=== PATIENT | female | born 1980 | race African-American/Black ===

== ENCOUNTER 2024-09-21 15:36 | Emergency (ER) | payer MEDICARE, SELFPAY ==
[2024-09-21] VITALS (7 sets, daily range): BP systolic 93–158; BP diastolic 69–95; PULSE 70–97; RESP 14–18; TEMP 36.6; O2SAT 95–100
--- NOTE | ~2024-09-21 | CT_ITS ---
CT brain wo con Ordering provider: Jay Pace PA-C History: 44 years Female with . dizziness . Comparison: January 16, 2014 Technique: CT of the head without contrast. Radiation reduction technique utilized.The dose-length product was 605.33 mGy-cm. FINDINGS: BRAIN PARENCHYMA AND CSF SPACES: No midline shift, mass effect or hemorrhage. The brain parenchyma a nd CSF spaces are otherwise normal. VISUALIZED PARANASAL SINUSES: Well aerated. MASTOIDS: Well aerated. BONES: The bones appear intact. SOFT TISSUES: Visualized nasopharynx is normal. Superficial soft tissues are normal. IMPRESSION: No acute intracranial findings. Reviewed, dictated and finalized at location A.
--- NOTE | ~2024-09-21 | XR_ITS ---
CHEST RADIOGRAPH, PA AND LATERAL CLINICAL HISTORY: dizziness . COMPARISON: 02/01/2016 TECHNIQUE: PA and lateral views of the chest. FINDINGS The cardiomediastinal silhouette is unremarkable. The lungs are clear. Visualized osseous structures and soft tissues are unremarkable. IMPRESSION: No focal infiltrate or effusion. Reviewed, dictated and finalized at location A.
--- NOTE | 2024-09-21 16:39 | ECG_ITS ---
Test Date: 2024-09-21 16:45:14 Measurements Intervals [place] Rate: 89 P: 43 LA: 152 QRS: -14 QRSD: 122 T: 9 QT: 356 QTc: 435 Interpretive Statements NORMAL SINUS RHYTHM NONSPECIFIC ST AND T-WAVE ABNORMALITY ABNORMAL ECG Electronically Signed On 09-22-2024 12:14:[address] M.D.
--- NOTE | 2024-09-21 16:39 | ED_ITS ---
HPI - Dizziness General Chief Complaint: Dizziness <Jay Pace PA-C - Last Filed: 09/21/24 16:43> Stated Complaint: Syncopal episode at 1100, dizziness <Jay Pace PA-C - Last Filed: 09/21/24 16:43> Time Seen by Provider: 09/21/24 17:19 <Jay Pace PA-C - Last Filed: 09/21/24 16:43> Focused HPI: This is a 44-year-old female with PMH of lupus, asthma who presents to the ED for chief complaint of dizziness with syncopal episode today occurring around 11:00 a.m.. Patient states that she was with her daughter when she was standing and talking to her. States that she started to feel dizziness come on and then had the episode. States that she went all the way to the ground. She was told by her daughter that she came to after a few seconds. Patient does note that she has had dizziness symptoms in the past were everything feels like it is spinning. States that the dizziness is worse whenever she stands up. Denies fevers, chills, headache, numbness, weakness. GENERAL: Well-appearing, well-nourished, and in no acute distress. HEAD: Normocephalic, atraumatic. CHEST: Clear to auscultation. No respiratory distress. HEART: Regular rate and rhythm. NEURO: Alert and oriented x3. Patient screened in triage and initial orders placed. Additional care and disposition to be based upon diagnostic testing and treatment. <Jay Pace PA-C - Last Filed: 09/21/24 16:43> Source: patient <Jay Pace PA-C - Last Filed: 09/21/24 16:43> Mode of arrival: ambulatory <LILIANA Caro Last Filed: 09/21/24 16:43> Limitations: no limitations <LILIANA Caro Last Filed: 09/21/24 16:43> Related Data Allergies/Adverse Reactions: Allergies Allergy/AdvReac Type Severity Reaction Status Date / Time hydromorphone Allergy Severe NAUSEA AND Verified 09/21/24 18:11 SOB azithromycin Allergy Unknown Hives Verified 09/21/24 18:11 <Jay Pace PA-C - Last Filed: 09/21/24 16:43> Review of Systems 2 Review of Systems: All systems reviewed & are unremarkable except as noted in HPI and below <Kandice Seay PA-C - Last Filed: 09/21/24 20:04> PMFSH Past Medical History Medical History: Medical History (Updated 09/21/24 @ 19:56 by Kandice Seay PA-C) History of hypertension <Jay Pace PA-C - Last Filed: 09/21/24 16:43> Exam 2 Narrative: GENERAL: Well-appearing, well-nourished, and in no acute distress. HEAD: Normocephalic, atraumatic. EYES: EOMI. ENT: Nares clear, no rhinorrhea or epistaxis. Mucous membranes moist. Oropharynx without tonsillar hypertrophy exudate or other lesions. NECK: Supple. No adenopathy or masses. CHEST: Clear to auscultation. No respiratory distress. No wheezes rales or rhonchi HEART: Regular rate and rhythm. No murmur heard. Normal peripheral pulses. EXTREMITIES: Normal range of motion. No edema. SKIN: Warm, dry, no rash. NEURO: No focal deficits. Alert and oriented x3. PSYCH: Normal mood and affect <Kandice Seay PA-C - Last Filed: 09/21/24 20:04> Course Course Emergency Course: patient updated on her workup. Reports feeling much better <Kandice Seay PA-C - Last Filed: 09/21/24 20:04> Vital Signs Vital signs: Vital Signs Temperature 97.8 F 09/21/24 15:40 Pulse Rate 97 09/21/24 15:40 Respiratory Rate 16 09/21/24 15:40 Blood Pressure 109/78 09/21/24 15:40 Pulse Oximetry 95 09/21/24 15:40 Temperature 97.8 F 09/21/24 15:40 Pulse Rate 70 09/21/24 19:28 Respiratory Rate 14 09/21/24 19:28 Blood Pressure 158/95 H 09/21/24 19:28 Pulse Oximetry 100 09/21/24 19:28 <Jay Pace PA-C - Last Filed: 09/21/24 16:43> Vital Signs Temperature 97.8 F 09/21/24 15:40 Pulse Rate 97 09/21/24 15:40 Respiratory Rate 16 09/21/24 15:40 Blood Pressure 109/78 09/21/24 15:40 Pulse Oximetry 95 09/21/24 15:40 Temperature 97.8 F 09/21/24 15:40 Pulse Rate 70 09/21/24 19:28 Respiratory Rate 14 09/21/24 19:28 Blood Pressure 158/95 H 09/21/24 19:28 Pulse Oximetry 100 09/21/24 19:28 <Kandice Seay PA-C - Last Filed: 09/21/24 20:04> MDM - Dizziness MDM Narrative Medical decision making narrative: Patient presents to the ER after a syncopal episode today. Patient orthostatic upon arrival. Hydrated with a L of IV fluids with relief. Cbc without concerning findings. Metabolic panel with mild elevation in creatinine 1.12. EKG without concerning changes and baseline troponin is negative. Chest x-ray without acute cardiopulmonary abnormality. CT brain without acute findings. Patient updated on her workup. Reports feeling much better after hydration. Will be given order for ambulatory Holter monitor. She is to follow up with primary provider. She was given warnings to return to the ER <Kandice Seay PA-C - Last Filed: 09/21/24 20:04> Differential Diagnosis Differential diagnosis: Likely benign paroxysmal positional vertigo, orthostatic hypotension and other (dehydration, electrolyte derangement) <Kandice Seay PA-C - Last Filed: 09/21/24 20:04> Lab Data Attestation: I reviewed the patient's lab results. <Kandice Seay PA-C - Last Filed: 09/21/24 20:04> Result diagrams: 09/21/24 16:45 09/21/24 16:45 <LILIANA Caro Last Filed: 09/21/24 16:43> Labs: Lab Results 09/21/24 Range/Units 16:45 WBC 7.1 (4.5-10.0) K/mm3 RBC 4.19 L (4.2-5.4) M/mm3 Hgb 12.3 (12.0-15.0) g/dL Hct 38.4 (37.0-47.0) % MCV 91.6 (80-100) fl MCH 29.4 (26-34) pg MCHC 32.0 (32-36) g/dl RDW 12.5 (11.5-14.5) % Plt Count 276 (150-375) k/mm3 MPV 8.8 (7.4-10.4) fl Immature Gran % (Auto) 0.1 (0-0.5) % Neut % (Auto) 47.4 (45.5-73.1) % Lymph % (Auto) 35.3 (18.3-44.2) % [place] % (Auto) 11.9 H (2.6-8.5) % Eos % (Auto) 4.7 H (0-4.4) % Baso % (Auto) 0.6 (0.2-1.2) % Lymph # (Auto) 2.49 (0.9-3.2) K/mm3 [place] # (Auto) 0.8 H (0.1-0.6) K/mm3 Eos # (Auto) 0.3 (0-0.3) K/mm3 Baso # (Auto) 0.0 (0.0-0.1) K/mm3 Abs Immat Gran (auto) 0.01 (0.00-0.031) K/mm3 Absolute Neuts (auto) 3.3 (1.3-6.7) K/mm3 Absolute Nucleated RBC 0.000 (0.0-0.012) K/mm3 Nucleated RBC % 0.0 (0.0-0.2) % PT 13.3 (11.1-14.7) Seconds INR 1.0 APTT 25.3 (22.3-36.8) Seconds Sodium 139 (137-145) mmol/L Potassium 4.5 (3.4-5.0) mmol/L Chloride 104 (98-107) mmol/L Carbon Dioxide 26 (22-30) mmol/L Anion Gap 9 (4-12) mmol/L BUN 17 (7-17) mg/dL Creatinine 1.12 H (0.7-1.0) mg/dL Estim Creat Clear Calc Not Reportable Estimated GFR 53 L (59 - ) Glucose 96 (65-110) mg/dL Calcium 9.2 (8.4-10.2) mg/dL Total Bilirubin 0.1 L (0.2-1.3) mg/dL AST 32 (14-36) U/L ALT 24 (6-35) U/L Alkaline Phosphatase 145 H (38-126) U/L Troponin I < 0.012 (0.000-0.034) ng/mL Total Protein 8.0 (6.3-8.2) g/dL Albumin 4.0 (3.5-5.1) g/dL <Jay Pace PA-C - Last Filed: 09/21/24 16:43> Lab Results 09/21/24 Range/Units 16:45 WBC 7.1 (4.5-10.0) K/mm3 RBC 4.19 L (4.2-5.4) M/mm3 Hgb 12.3 (12.0-15.0) g/dL Hct 38.4 (37.0-47.0) % MCV 91.6 (80-100) fl MCH 29.4 (26-34) pg MCHC 32.0 (32-36) g/dl RDW 12.5 (11.5-14.5) % Plt Count 276 (150-375) k/mm3 MPV 8.8 (7.4-10.4) fl Immature Gran % (Auto) 0.1 (0-0.5) % Neut % (Auto) 47.4 (45.5-73.1) % Lymph % (Auto) 35.3 (18.3-44.2) % [place] % (Auto) 11.9 H (2.6-8.5) % Eos % (Auto) 4.7 H (0-4.4) % Baso % (Auto) 0.6 (0.2-1.2) % Lymph # (Auto) 2.49 (0.9-3.2) K/mm3 [place] # (Auto) 0.8 H (0.1-0.6) K/mm3 Eos # (Auto) 0.3 (0-0.3) K/mm3 Baso # (Auto) 0.0 (0.0-0.1) K/mm3 Abs Immat Gran (auto) 0.01 (0.00-0.031) K/mm3 Absolute Neuts (auto) 3.3 (1.3-6.7) K/mm3 Absolute Nucleated RBC 0.000 (0.0-0.012) K/mm3 Nucleated RBC % 0.0 (0.0-0.2) % PT 13.3 (11.1-14.7) Seconds INR 1.0 APTT 25.3 (22.3-36.8) Seconds Sodium 139 (137-145) mmol/L Potassium 4.5 (3.4-5.0) mmol/L Chloride 104 (98-107) mmol/L Carbon Dioxide 26 (22-30) mmol/L Anion Gap 9 (4-12) mmol/L BUN 17 (7-17) mg/dL Creatinine 1.12 H (0.7-1.0) mg/dL Estim Creat Clear Calc Not Reportable Estimated GFR 53 L (59 - ) Glucose 96 (65-110) mg/dL Calcium 9.2 (8.4-10.2) mg/dL Total Bilirubin 0.1 L (0.2-1.3) mg/dL AST 32 (14-36) U/L ALT 24 (6-35) U/L Alkaline Phosphatase 145 H (38-126) U/L Troponin I < 0.012 (0.000-0.034) ng/mL Total Protein 8.0 (6.3-8.2) g/dL Albumin 4.0 (3.5-5.1) g/dL <Kandice Seay PA-C - Last Filed: 09/21/24 20:04> Imaging Data Radiologist's impression: ITS Impressions Head CT 09/21/24 16:57 IMPRESSION: No acute intracranial findings. Chest X-Ray 09/21/24 19:15 IMPRESSION: No focal infiltrate or effusion. <LILIANA Ellis Last Filed: 09/21/24 20:04> ECG Data EKG #1: ECG completion date: 09/21/24 <LILIANA Ellis Last Filed: 09/21/24 20:04> EKG Interpretation: normal rate, sinus rhythm, no ST changes and normal QT <LILIANA Ellis Last Filed: 09/21/24 20:04> Critical Care Time Critical Care Time Critical Care Time: No <Kandice Seay PA-C - Last Filed: 09/21/24 20:04> Discharge Plan Discharge Clinical Impression: Orthostatic hypotension Syncope Qualifiers: Syncope type: unspecified Qualified Code(s): R55 - Syncope and collapse <LILIANA Caro Last Filed: 09/21/24 16:43> Patient Disposition: Home, Self-Care <Jay Pace PA-C - Last Filed: 09/21/24 16:43> Condition: Improved <LILIANA Caro Last Filed: 09/21/24 16:43> Instructions: Syncope (ED) <LILIANA Caro Last Filed: 09/21/24 16:43> Additional Instructions: Return to the emergency department if you experience fever, chest pain, shortness of breath, abdominal pain with nausea and vomiting, weakness, numbness, or any other symptoms that are concerning to you. I have sent an order electronically for you to have further monitoring of your heart rhythm. Call to get this set up Follow up with your primary care doctor <Jay Pace PA-C - Last Filed: 09/21/24 16:43> Patient Language: Malaysian <Jay Pace PA-C - Last Filed: 09/21/24 16:43> Other Ambulatory Orders: [place] holter monitor 3-7 day (Routine) Timeframe: 1 Day Location: Determined by Patient Ordered By: Kandice Seay <LILIANA Caro Last Filed: 09/21/24 16:43> Follow-up/Referrals: UNKNOWN,DOCTOR [Primary Care Provider] - <LILIANA Caro Last Filed: 09/21/24 16:43>
[2024-09-21 16:54] LABS: Basophils Percent Auto 0.6 % (0.2-1.2); Eosinophils Absolute Auto 0.3 K/mm3 (0-0.3); Eosinophils Percent Auto 4.7 % (0-4.4); Hematocrit 38.4 % (37.0-47.0); Hemoglobin 12.3 g/dL (12.0-15.0); Immature Granulocyte Absolute 0.01 K/mm3 (0.00-0.031); Immature Granulocyte Percent A 0.1 % (0-0.5); Lymphocytes Absolute Auto 2.49 K/mm3 (0.9-3.2); Lymphocytes Percent Auto 35.3 % (18.3-44.2); Mean Corpuscular Hemoglobin 29.4 pg (26-34); Mean Corpuscular Volume 91.6 fl (80-100); Mean Platelet Volume 8.8 fl (7.4-10.4); Monocytes Absolute Auto 0.8 K/mm3 (0.1-0.6); Monocytes Percent Auto 11.9 % (2.6-8.5); Neutrophils Absolute Auto 3.3 K/mm3 (1.3-6.7); Neutrophils Percent Auto 47.4 % (45.5-73.1); Platelet Count Result 276 k/mm3 (150-375); Red Blood Count 4.19 M/mm3 (4.2-5.4); Red Cell Distribution Width 12.5 % (11.5-14.5); White Blood Count 7.1 K/mm3 (4.5-10.0)
[2024-09-21 17:05] LABS: Partial Thromboplastin Time 25.3 Seconds (22.3-36.8); Prothrombin Time 13.3 Seconds (11.1-14.7)
[2024-09-21 17:08] LABS: Alanine Aminotransferase 24 U/L (6-35); Alkaline Phosphatase 145 U/L (38-126); Anion Gap 9 mmol/L (4-12); Aspartate Amino Transferase 32 U/L (14-36); Bilirubin,Total 0.1 mg/dL (0.2-1.3); Blood Urea Nitrogen 17 mg/dL (7-17); Calcium 9.2 mg/dL (8.4-10.2); Carbon Dioxide 26 mmol/L (22-30); Chloride 104 mmol/L (98-107); Estimated Glomerular Filt Rate 53; Glucose 96 mg/dL (65-110); Potassium 4.5 mmol/L (3.4-5.0); Sodium 139 mmol/L (137-145)
--- OUTSIDE RECORDS SUMMARY | 2024-09-21 17:32 | XMS_ITS | Referral Summary ---
Author Organization [facility] Address [address] [place] [id number] Care Team Providers Care Director Of Catering Name Role Phone Rhea Gay MD Primary Care Provider Allergies Active Allergy Reactions Criticality Noted Date Comments Azithromycin Hives,Rash,Stomach upset,Unknown,Urtic aria High 09/10/2009 And abd pain Other reaction(s): Abdominal Pain, GI Discomfort, Unknown, Unknown, Urticaria Coconut Oil Hives,Itching,Urtic aria High 07/27/2021 Other reaction(s): Urticaria Hydromorphone Hives,Rash,Unknown, Urticaria High 11/21/2014 And abd pain Other reaction(s): GI Discomfort, Unknown, Urticaria Hydromorphone (Bulk) Unknown Low 11/21/2014 Other reaction(s): Abdominal Pain L Norgest/E.Estradiol-E.Es trad Hives,Unknown Medium 06/10/2016 Other reaction(s): Unknown Levonorgest-Eth.Estradio l-Iron Other (See comments) Medium 06/10/2016 [place] Hives Medium 07/27/2021 Medications albuterol HFA (PROVENTIL HFA,VENTOLIN HFA,PROAIR HFA) 90 mcg/actuation inhaler Ventolin HFA 90 mcg/actuation aerosol inhaler 08/26/19 18 Active valbenazine (Ingrezza) capsuleIndication s:Bipolar disorder in partial remission, most recent episode unspecified type Take 1 capsule (80 mg total) by mouth daily 07/26/[address] (CYMBALTA) 60 mg capsule duloxetine 60 mg capsule,delayed release 04/23/20 16 Active etonogestreL (NEXPLANON) 68 mg implant Inject under the skin Active VivitroL 380 mg suspension,extend ed rel recon INJECT 380mg INTRAMUSCULARLY every FOUR WEEKS 11/26/19 23 Active benztropine (COGENTIN) 0.5 mg tablet Take 1 tablet (0.5 mg total) by mouth nightly at bedtime 05/27/20 23 Active lurasidone (LATUDA) 60 mg tablet 06/18/20 23 Active hydroxychloroquin e (PLAQUENIL) 200 mg tabletIndications :Connective Tissue Disease,Systemic Lupus Erythematosus Take 2 tablets (400 mg total) by mouth daily 180 tablet 3 06/22/20 23 Active pimecrolimus (ELIDEL) 1 % creamIndications: Other seborrheic dermatitis Apply topically daily as needed (rash and itching) Apply daily to face for itching 30 g 3 09/08/19 24 Active ketoconazole (NIZORAL) 2 % shampooIndication s:Other seborrheic dermatitis GENTLY MASSAGE INTO SCALP AND LEAVE IN FOR 1-2 HOURS BEFORE RINSING. USE WHENEVER WASHING HAIR. ALSO USE FACE WASH DAILY 120 mL 2 03/08/20 24 Active Active Problems Problem Noted Date Diagnosed Date ESR raised 12/15/2022 Tardive dyskinesia 11/28/2022 12/13/2022 Overview (12/13/2022): Last Assessment & Plan: Condition: stable Follow up in: if symptoms worsen or fail to improve Seronegative arthritis 06/16/2022 Rosacea 06/16/2022 Positive KAYLEE (antinuclear antibody) 02/08/2022 Antimitochondrial antibody positive 02/08/2022 Bipolar disorder 06/06/2020 Overview (02/08/2022): Last Assessment & Plan: Condition: stable Last mental health visit monthly Medications: Taking medications as prescribed If taking medications, do not stop treatment without consulting healthcare provider. If symptoms worsen or do not improve/stabilize, notify health care provider right away. If thoughts of harming self or others notify health care provider immediately &/or seek urgent/emergent care including calling Suicide Hotline ( ) or 911. 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 Condition: asymptomatic No recent labs in chart. Patient is asymptomatic at this visit. Continue medications as prescribed and follow up with PCP/specialist as scheduled. 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 Continue medications as prescribed and follow up with PCP/specialist as scheduled. Follow up in: six months Resolved Problems Problem Noted Date Diagnosed Date Resolved Date Fibromyalgia 01/17/2016 06/16/2022 Overview (02/08/2022): Last Assessment & Plan: Condition: asymptomatic Patient denies pain at this telehealth visit today. Patient is asymptomatic at this visit. Continue medications as prescribed and follow up with PCP/specialist as scheduled. Follow up in: three months Social History Tobacco Use Types Packs/Day Years Used Date Smoking Tobacco: Never Smokeless Tobacco: Never Tobacco Cessation:Counseling Given: Not Answered Comments Unknown Sex and Gender Information Value Date Recorded Sex Assigned at Not on file Legal Sex Female 9:45 PM SCREEN MAKING SUPERVISOR Gender Identity Not on file Sexual Orientation Not on file Last Filed Vital Signs Vital Sign Reading Time Taken Comments Blood Pressure 103/72 06/20/2023 11:17 AM SCREEN MAKING SUPERVISOR Pulse 116 06/20/2023 11:17 AM SCREEN MAKING SUPERVISOR Temperature 36.7 C (98 F) 06/20/2023 11:17 AM SCREEN MAKING SUPERVISOR Respiratory Rate - - Oxygen Saturation - - Inhaled Oxygen Concentration - - Weight 96.3 kg (212 lb 3.2 oz) 06/20/2023 11:17 AM SCREEN MAKING SUPERVISOR Height 162.6 cm (5' 4 ) 06/20/2023 11:17 AM SCREEN MAKING SUPERVISOR Body Mass Index 36.42 06/20/2023 11:17 AM SCREEN MAKING SUPERVISOR Plan of Treatment Not on file Insurance [facility] MEDICARE SOLUTIONS Care Teams Director Of Catering Relationship Specialty Start Date End Date Rhea Gay MD PCP - General 02/18/17
--- OUTSIDE RECORDS SUMMARY | 2024-09-21 17:32 | XMS_ITS | Clinical Summary ---
Author Organization [facility] Address [address] [place] [id number] Care Team Providers Care Marble Mason Name Role Phone Rhea Gay MD Primary [...] Levonorgest-Eth.Estradio l-Iron Other (See comments) Medium 06/10/2016 [place] Hives Medium 07/27/2021 Medications albuterol HFA (PROVENTIL [...] as scheduled. Follow up in: three months Surgical History Surgery Date Site/Laterality Comments MN LIG/TRNSXJ FLP TUBE ABDL/ VAG APPR UNI/BI Tubal Ligation - (Added by TW Conv) Medical History Medical History Date Comments Gonococcal cervicitis Gonococcal cervicitis - (Added by TW Conv) Personal history of urinary infection History of cystitis - (Added by TW Conv) Personal history of other in fectious and parasitic diseases History of chlamydia infecti on - (Added by TW Conv) Personal history of other di seases of urinary system History of pyelonephritis - (Added by TW Conv) Fibromyalgia 01/17/2016 Last Assessment & Plan: Condition: asymptomatic Patient denies pain at this telehealth visit today. Patient is asymptomatic at this visit. Continue medications as prescribed and follow up with PCP/specialist as scheduled. Follow up in: three months Family History Medical History Relation Name Comments Diabetes Other Diabetes Mellit us - (Added by TW Conv) Hypertension Other Hypertension - (Added by NAHOMI Conv) Relation Name Status Comments Other Social History Tobacco Use Types Packs/Day Years Used Date Smoking Tobacco: Never Smokeless Tobacco: Never Tobacco Cessation:Counseling Given: Not Answered Comments Unknown Sex and Gender Information Value Date Recorded Sex Assigned at Not on file Legal Sex Female 9:45 PM HRIS DEVELOPER Gender Identity Not on file Sexual Orientation Not on file Obstetrics History Last Filed Vital Signs Vital Sign Reading Time Taken Comments Blood Pressure 103/72 06/20/2023 11:17 AM HRIS DEVELOPER Pulse 116 06/20/2023 11:17 AM HRIS DEVELOPER Temperature 36.7 C (98 F) 06/20/2023 11:17 AM HRIS DEVELOPER Respiratory Rate - - Oxygen Saturation - - Inhaled Oxygen Concentration - - Weight 96.3 kg (212 lb 3.2 oz) 06/20/2023 11:17 AM HRIS DEVELOPER Height 162.6 cm (5' 4 ) 06/20/2023 11:17 AM HRIS DEVELOPER Body Mass Index 36.42 06/20/2023 11:17 AM HRIS DEVELOPER Plan of Treatment Health Maintenance Due Date Last Done Comments Breast Cancer Screening-Mammogram 1981 Cervical Cancer Screening 1981 Depression Screening 1981 Hepatitis C Screening 1981 Varicella Vaccines (1 of 2 - 13+ 2-dose series) 1994 Hepatitis B Screening 1999 Regular Well Visit/Exam 18-64 1999 HPV Vaccines (3 - 3-dose SCDM series) 12/12/2021 08/20/2021, 06/13/2021 Covid-19 Vaccine ( season) 2024 06/13/2021, 10/19/2020, 09/21/2020 Influenza Vaccine (#1) 2024 , 04/11/2021, 04/19/2020, Additional history exists DTaP/Tdap/Td Vaccine (2 - Td or Tdap) 05/02/2032 05/02/2022 Pneumococcal vaccine <65 Aged Out 05/02/2022 No longer eligible based on patient's age to complete this topic Insurance [address] [id number] [facility] MEDICARE [facility] Address: [facility] [address] [place] [address] Care Teams Marble Mason Relationship Specialty Start Date End Date Rhea Gay MD PCP - General 02/18/17
--- OUTSIDE RECORDS SUMMARY | 2024-09-21 17:32 | XMS_ITS | Patient Health Record ---
Author Organization [facility] Address [address] [place] [address] Care Team Providers Care Supervisor Press Room Name Role Phone Juliano Goldman Primary Care Provider Allergies Allergen (clinical drug ingredient) Drug/Non Drug Allergy documented on EMR Reaction Allergy Type Onset Date Status Azithromycin Unknown Drug Allergy Acti ve hydromorphone Dilaudid Unknown Drug Allergy Act tatyana Reason For Referral No Information Medications Medication SIG (Take, Route, Fr equency, Duration) Notes Start Date End Date Status DULoxetine HCl 60 MG 1 capsule Orally Once a day Active DULoxetine HCl 30 MG 1 capsule Orally Once a day Active Latuda 40 MG 1 tablet in the even ing with food Orally Once a day for 30 days Active Vivitrol 380 MG as directed Intramuscular Active Ingrezza 80 MG 1 capsule Orally Once a day Active Immunizations Vaccine Route Administration Date Status Comme nts COVID-19 Moderna 1ST IM Intramuscular 09/21/2020 Administwill red COVID-19 Moderna 2nd IM Intramuscular 10/19/2020 Adminconsuelo simms Social History Tobacco Use: Social History Observation Description Date Details (start date - stop date) Never Smoker NA - NA Dont use, Tobacco Use/Smoking Question Answer Notes Are you a nonsmoker Problems Problem Type SNOMED Code ICD Code Onset Dates Problem Status W/U Status Risk Notes Problem Bipolar 1 disorder (502172414) Bipolar 1 disorder (F31.9) Active confirmed Plan Of Treatment No Information Insurance Providers Payer Name Payer Address Payer Phone Subscriber Number Group Number Insured Name Patient Relationship to Insured Coverage Start Date Coverage End Date [employer] [address] [place] [address] [id number] Rimma Barajas Self - patient is the insured 1 [facility] [address] [place] [address] [id number] Rimma Barajas Self - patient is the insured 1 MEDICARE PART A [address] [place] [address] [id number] Rimma Barajas Self - patient is the insured 1 Medical (General) History Medical History History ICD Code DEPRESSION TARDIVE DISCONESIA ALCOHOL USE DISORDER Surgical History Surgery Date(Month/Year) LEFT ELBOW- MENTAL PLATE & RODS PLACED TUBAL LIGATION Hospitalization History Reason Date(Month/Year) [facility] ( [facility]YS ) 201 4
--- OUTSIDE RECORDS SUMMARY | 2024-09-21 17:32 | XMS_ITS | Patient Health Record ---
Author Organization [facility] Address [address] [facility] [address] [place], [place] [id number] Care Team Providers Care Civil Defense Director Name Role Phone Rhea Gay MD Primary Care Provider Unavail able GalloAniya Unavailable ALLERGIES Allergen (clinical drug ingredient) Drug/Non Drug Allergy documented on EMR Reaction Allergy Type Onset Date Status Seasonique Unknown Drug Allergy Active hydromorphone Dilaudid Unknown Drug Allergy Act tatyana azithromycin Zithromax Unknown Drug Allergy Acti ve REASON FOR REFERRAL No Information MEDICATIONS Medication SIG (Take, Route, Frequency, Duration) Notes Start Date End Date Status Hydroxychloroquine Sulfate 2 00 mg 1 tab(s) orally bid for 90 day(s) 06/07/2016 Active Plaquenil 200 mg 1 tab(s) orally bid Active predniSONE 1 mg 1 tab(s) orally tid Active Cymbalta 60 mg 1 cap(s) orally bid Active Lyrica 150 mg 1 cap(s) orally 2 times a day Active SOCIAL HISTORY Tobacco Use: Social History Observation Description Date Details (start date - stop date) Never Smoker NA - NA Sex Assigned At : Social History Observation Description Sex Assigned At Unknown Tobacco Use: Question Answer Notes Smoking Status nonsmoker PROBLEMS Problem Type ICD Code Onset Dates Problem Status W/U Status Risk SNOMED Code Notes Problem Inflammatory arthritis (M19.90) Active confirmed 8024396 Problem Trochanteric bursitis of left hip (M70.62) Active confirmed 458310211997261 Problem Major depression (F32.9) Active confirmed 586099267 Problem Fibromyalgia (M79.7) Active confirmed [id number] PLAN OF TREATMENT No Information Insurance Providers Payer Name Payer Address Payer Phone Subscriber Number Group Number Insured Name Patient Relationship to Insured Coverage Start Date Coverage End Date [facility] P[facility] - NR [address] [place] [address] [id number] Leta Davis Self - patient is the insured 6 MEDICAL (GENERAL) HISTORY Medical History History ICD Code bruises easily migraine headache blurred vision vision - flashes ear ache Nose Bleeds dizziness swollen glands in groin swollen glands in neck low blood pressure anemia swelling of ankles/feet difficulty breathing asthma poor appetite bloating bowel changes constipation diarrhea irritable bowel syndrome gas indigestion Nausea stomach pain/cramps vomiting weight gain bleeding between periods extreme menstrual pain Hot Flashes Vaginal discharge painful intercourse anxiety depression Surgical History Surgery Date(Month/Year) tubal ligation 2002 elbow surgery 2013 laparoscopy 2016
[2024-09-21 18:07] LABS: Troponin I < 0.012 ng/mL (0.000-0.034)
[2024-09-21] MEDS: SODIUM CHLORIDE 0.9% IV 1,000 ML 999 ML IV CONT (18:11)
[2024-09-21] MEDS: ONDANSETRON INJ 4 MG/2 ML VIAL IV PUSH (18:12)
[2024-09-21] MEDS: MECLIZINE HCL 25 MG TABLET PO (18:13)
--- OUTSIDE RECORDS SUMMARY | 2024-09-21 18:19 | XMS_ITS | Clinical Summary ---
Author Organization [facility] Address [address] [place] [address] Care Team Providers Care Sand Technologist Name Role Phone Rhea Gay MD Primary [...] Levonorgest-Eth.Estradio l-Iron Other (See comments) Medium 06/10/2016 [place] Hives Medium 07/27/2021 Medications albuterol HFA (PROVENTIL [...] months Surgical History Surgery Date Site/Laterality Comments [place] LIG/TRNSXJ FLP TUBE ABDL/ VAG APPR UNI/BI [...] on file Legal Sex Female 9:45 PM BABY DOCTOR Gender Identity Not on file Sexual Orientation Not on file Obstetrics History Last Filed Vital Signs Vital Sign Reading Time Taken Comments Blood Pressure 103/72 06/20/2023 11:17 AM BABY DOCTOR Pulse 116 06/20/2023 11:17 AM BABY DOCTOR Temperature 36.7 C (98 F) 06/20/2023 11:17 AM BABY DOCTOR Respiratory Rate - - Oxygen Saturation - - Inhaled Oxygen Concentration - - Weight 96.3 kg (212 lb 3.2 oz) 06/20/2023 11:17 AM BABY DOCTOR Height 162.6 cm (5' 4 ) 06/20/2023 11:17 AM BABY DOCTOR Body Mass Index 36.42 06/20/2023 11:17 AM BABY DOCTOR Plan of Treatment Health Maintenance Due Date [...] age to complete this topic Insurance [id number] [id number] [facility] [place] [address] Care Teams Sand Technologist Relationship Specialty Start Date End Date Rhea Gay MD PCP - General 02/18/17
--- OUTSIDE RECORDS SUMMARY | 2024-09-21 18:19 | XMS_ITS | Referral Summary ---
Author Organization [facility] Address [address] [place] [address] Care Team Providers Care Heel Top Lift Splitter Name Role Phone Rhea Gay MD Primary [...] Levonorgest-Eth.Estradio l-Iron Other (See comments) Medium 06/10/2016 [place] Hives Medium 07/27/2021 Medications albuterol HFA (PROVENTIL [...] on file Legal Sex Female 9:45 PM MARKETING [employer]TERTAIN[employer] Gender Identity Not on file Sexual Orientation Not on file Last Filed Vital Signs Vital Sign Reading Time Taken Comments Blood Pressure 103/72 06/20/2023 11:17 AM MARKETING [employer]TER[employer]MENT Pulse 116 06/20/2023 11:17 AM MARKETING [employer] ENTERTAINMENT Temperature 36.7 C (98 F) 06/20/2023 11:17 AM MARKETING [employer]TER[employer]MENT Respiratory Rate - - Oxygen Saturation - - Inhaled Oxygen Concentration - - Weight 96.3 kg (212 lb 3.2 oz) 06/20/2023 11:17 AM MARK[employer]ING [employer] Height 162.6 cm (5' 4 ) 06/20/2023 11:17 AM MARKETING [employer]TER[employer]MENT Body Mass Index 36.42 06/20/2023 11:17 AM MARKETING [employer] Plan of Treatment Not on file Insurance [facility] MEDICARE SOLUTIONS [facility] MEDICARE Address: [facility] [address] [place] [address] Care Teams Heel Top Lift Splitter Relationship Specialty Start Date End Date Rhea Gay MD PCP - General 02/18/17
--- NOTE | 2024-09-21 19:23 | PC.NURSE ---
Assumed care of patient after receiving report from COTY Howard. @[phone]
== END 2024-09-21 20:05 | disposition home or self-care (01) ==
PROVIDERS: Physician Assistant; Emergency Provider Physician Assistant
DX: I95.1 Orthostatic hypotension (principal); I10 Essential (primary) hypertension; R94.31 Abnormal electrocardiogram [ECG] [EKG]
CPT/HCPCS: 36415; 70450; 71046; 80053; 84484; 85025; 85610; 85730; 93005; 96361; 96374; 99284; A9270; J2405; J7030

== ENCOUNTER 2024-09-28 08:26 | Outpatient (CLI) | payer MEDICARE, SELFPAY ==
--- OUTSIDE RECORDS SUMMARY | 2024-09-28 08:51 | XMS_ITS | Patient Health Record ---
Author Organization [facility] Address [address] [place] [address] Care Team Providers Care Forest Technology Professor Name Role Phone Juliano Goldman Primary Care [...] Status Risk Notes Problem Bipolar 1 disorder (688786068) Bipolar 1 disorder (F31.9) Active confirmed Plan Of Treatment No Information Insurance Providers Payer Name Payer Address Payer Phone Subscriber Number Group Number Insured Name Patient Relationship to Insured Coverage Start Date Coverage End Date [employer] MEDIC[employer] [address] [place] [address] [id number] Rimma Barajas Self - patient is the insured 1 [facility] [address] [place] [address] [id number] Rimma Barajas Self - patient is the insured 1 MEDICARE PART A [address] [place] [address] [id number] Rimma Barajas Self - patient is the insured 1 Medical (General) History Medical History History ICD Code DEPRESSION TARDIVE DISCONESIA ALCOHOL USE DISORDER Surgical History Surgery Date(Month/Year) LEFT ELBOW- MENTAL PLATE & RODS PLACED TUBAL LIGATION Hospitalization History Reason Date(Month/Year) [facility] ( 5 [facility] ) 201 4
--- OUTSIDE RECORDS SUMMARY | 2024-09-28 08:52 | XMS_ITS | Clinical Summary ---
Author Organization [facility] Address [address] [place] [address] Care Team Providers Care Director Supplier Quality Name Role Phone Rhea Gay MD Primary [...] Levonorgest-Eth.Estradio l-Iron Other (See comments) Medium 06/10/2016 [place] Hives Medium 07/27/2021 Medications albuterol HFA (PROVENTIL [...] months Surgical History Surgery Date Site/Laterality Comments [place] LIG/TRNSXJ FLP TUBE ABDL/ VAG APPR UNI/BI [...] on file Legal Sex Female 9:45 PM MECHANIC FOREMAN Gender Identity Not on file Sexual Orientation Not on file Obstetrics History Last Filed Vital Signs Vital Sign Reading Time Taken Comments Blood Pressure 103/72 06/20/2023 11:17 AM MECHANIC FOREMAN Pulse 116 06/20/2023 11:17 AM MECHANIC FOREMAN Temperature 36.7 C (98 F) 06/20/2023 11:17 AM MECHANIC FOREMAN Respiratory Rate - - Oxygen Saturation - - Inhaled Oxygen Concentration - - Weight 96.3 kg (212 lb 3.2 oz) 06/20/2023 11:17 AM MECHANIC FOREMAN Height 162.6 cm (5' 4 ) 06/20/2023 11:17 AM MECHANIC FOREMAN Body Mass Index 36.42 06/20/2023 11:17 AM MECHANIC FOREMAN Plan of Treatment Health Maintenance Due Date [...] age to complete this topic Insurance [address] [id number] [facility] UHC MEDICARE ADVANTAGE [facility] MEDIC[facility] Address: [facility] [address] [place] [address] Care Teams Director Supplier Quality Relationship Specialty Start Date End Date Rhea Gay MD PCP - General 02/18/17
--- OUTSIDE RECORDS SUMMARY | 2024-09-28 08:52 | XMS_ITS | Patient Health Record ---
Author Organization [facility] Address [address] [facility] [address] [facility] [address] [place], [place] [id number] Care Team Providers Care Livestock Broker Name Role Phone Rhea Gay MD Primary Care Provider Unavail able GalloAniya Unavailable [phone] ALLERGIES Allergen (clinical drug ingredient) Drug/Non Drug [...] Notes Problem Inflammatory arthritis (M19.90) Active confirmed 0338736 Problem Trochanteric bursitis of left hip (M70.62) Active confirmed [id number] Problem Major depression (F32.9) Active confirmed [id number] Problem Fibromyalgia (M79.7) Active confirmed [id number] PLAN OF TREATMENT No Information Insurance Providers Payer Name Payer Address Payer Phone Subscriber Number Group Number Insured Name Patient Relationship to Insured Coverage Start Date Coverage End Date [facility] PPO - NR [address] [place] [address] [id number] Leta Davis Self - patient is the [...]
--- OUTSIDE RECORDS SUMMARY | 2024-09-28 08:52 | XMS_ITS | Referral Summary ---
Author Organization [facility] Address [address] [place] [address] Care Team Providers Care Director Of Critical Care Name Role Phone Rhea Gay MD Primary [...] Levonorgest-Eth.Estradio l-Iron Other (See comments) Medium 06/10/2016 [place] Hives Medium 07/27/2021 Medications albuterol HFA (PROVENTIL [...] on file Legal Sex Female 9:45 PM WOOD BOATBUILDER APPRENTICE Gender Identity Not on file Sexual Orientation Not on file Last Filed Vital Signs Vital Sign Reading Time Taken Comments Blood Pressure 103/72 06/20/2023 11:17 AM WOOD BOATBUILDER APPRENTICE Pulse 116 06/20/2023 11:17 AM WOOD BOATBUILDER APPRENTICE Temperature 36.7 C (98 F) 06/20/2023 11:17 AM WOOD BOATBUILDER APPRENTICE Respiratory Rate - - Oxygen Saturation - - Inhaled Oxygen Concentration - - Weight 96.3 kg (212 lb 3.2 oz) 06/20/2023 11:17 AM WOOD BOATBUILDER APPRENTICE Height 162.6 cm (5' 4 ) 06/20/2023 11:17 AM WOOD BOATBUILDER APPRENTICE Body Mass Index 36.42 06/20/2023 11:17 AM WOOD BOATBUILDER APPRENTICE Plan of Treatment Not on file Insurance [address] [id number] [facility] UHC MEDICARE ADVANTAGE Care Teams Director Of Critical Care Relationship Specialty Start Date End Date Rhea Gay MD PCP - General 02/18/17
--- NOTE | 2024-10-06 07:45 | WPDHOLTEREM ---
Holter/Event Monitor Holter/Event Monitor Date of procedure: 09/28/24 Holter/Event Procedure: 3-7 Day Holter Monitor Indications: Syncope Conclusion: 1. 3 days holter monitor on 09/28/24. 2. Underlying rhythm is sinus rhythm. HR range 70-161 bpm; average HR 95 bpm. 3. There are rare premature supraventricular complexes. No supraventricular tachycardia. 4. There are rare premature ventricular complexes. No ventricular tachycardia. 5. No significant pauses greater than 3 seconds. 6. Patient reports 7 episodes of symptoms of lightheadedness, shortness of breath, fluttering, racing which demonstrate sinus rhythm, HR range 85-156 bpm with 1 episode with PAC.
== END 2024-09-28 08:27 | disposition home or self-care (01) ==
LOC: ANHCARD 08:28
PROVIDERS: PCP Internal Medicine Gastroenterology; Visit Provider Physician Assistant
DX: R55 Syncope and collapse (principal)
CPT/HCPCS: 93242

== ENCOUNTER 2025-05-17 12:00 | Emergency (ER) | payer MEDICARE, SELFPAY ==
--- NOTE | ~2025-05-17 | CT_ITS ---
EXAM/PROCEDURE: CT abdomen pelvis w con HISTORY: LLQ pain COMPARISON: January 24, 2016 TECHNIQUE: IV contrast enhanced CT of the abdomen and pelvis FINDINGS: The bowel gas pattern is nonobstructive with no free air free fluid or pneumatosis. Normal size appendix, aorta and gallbladder. The urinary bladder is nondistended with mild wall thickening possibly present. Uterus and adnexal regions unremarkable. No urolithiasis seen. No bulky mesenteric or retroperitoneal lymphadenopathy or masses seen. Liver spleen pancreas adrenal glands and kidneys appear within normal limits. Small hiatal hernia noted. Lung bases clear and heart size normal. No bulky mesenteric or retroperitoneal lymphadenopathy or masses. In the gluteal subcutaneous soft tissues, numerous small focal areas of nodularity and infiltration corresponding to the superior aspect of the gluteal folds. Bones appear intact. Mild degenerative changes. IMPRESSION: 1. No acute surgical abnormality identified. 2. Several infiltrative areas in the gluteal subcutaneous soft tissues probably from recent injections. Correlate with clinical exam. 3. Possible mild thickened urinary bladder wall. Correlate with urinalysis. Reviewed, dictated and finalized at location A. [employer]
[2025-05-17 12:02] VITALS: BP 129/81; PULSE 81; RESP 16; TEMP 36.6; O2SAT 100
--- OUTSIDE RECORDS SUMMARY | 2025-05-17 12:20 | XMS_ITS | Patient Health Record ---
Author Organization [facility] Address [address] [facility] [address] [place], [place] [id number] Care Team Providers Care Ovens Supervisor Name Role Phone Rhea Gay MD Primary [...] Notes Problem Inflammatory arthritis (M19.90) Active confirmed 6323719 Problem Trochanteric bursitis of left hip (M70.62) Active confirmed [id number] Problem Major depression (F32.9) Active confirmed 617171146 Problem Fibromyalgia (M79.7) Active confirmed [id number] PLAN OF TREATMENT No Information Insurance Providers Payer Name Payer Address Payer Phone Subscriber Number Group Number Insured Name Patient Relationship to Insured Coverage Start Date Coverage End Date [facility] PPO - NR [address] [place] [address] [id number] Leta Davis Self - patient is the [...]
--- OUTSIDE RECORDS SUMMARY | 2025-05-17 12:20 | XMS_ITS | Clinical Summary ---
Author Organization [facility] Address [address] [place] [address] Care Team Providers Care Arch Cushion Skiving Machine Operator Name Role Phone Rhea Gay MD Primary [...] Levonorgest-Eth.Estradio l-Iron Other (See comments) Medium 06/10/2016 [place] Hives Medium 07/27/2021 Medications albuterol HFA (PROVENTIL HFA,VENTOLIN HFA,PROAIR HFA) 90 mcg/actuation inhaler Ventolin HFA 90 mcg/actuation aerosol inhaler 08/26/[address] (CYMBALTA) 60 mg capsule duloxetine 60 mg capsule,delayed release 04/23/20 16 Active etonogestreL (NEXPLANON) 68 mg implant Inject under the skin Active VivitroL 380 mg suspension,extend ed rel recon INJECT 380mg INTRAMUSCULARLY every FOUR WEEKS 11/26/19 23 Active lurasidone (LATUDA) 60 mg tablet 06/18/20 23 Active pimecrolimus (ELIDEL) 1 % creamIndications: [...] DAILY 120 mL 2 03/08/20 24 Active Austedo 9 mg tablet tablet 02/27/20 25 Active EPINEPHrine 0.3 mg/0.3 mL auto-injection syringe INJECT 0.3 MG INTRAMUSCULARLY DIRECTED 12/16/19 25 Active hydroxychloroquin e (PLAQUENIL) 200 mg tabletIndications :Connective Tissue Disease,Systemic Lupus Erythematosus Take 2 tablets (400 mg total) by mouth daily 180 tablet 3 03/25/20 25 026 Active Active Problems Problem Noted Date Diagnosed Date ESR raised 12/15/2022 Tardive dyskinesia 11/28/2022 12/13/2022 Overview (12/13/2022): Last Assessment & Plan: Condition: stable Follow up in: if symptoms worsen or fail to improve Seronegative arthritis 06/16/2022 Positive KAYLEE (antinuclear antibody) 02/08/2022 Antimitochondrial [...] Problem Noted Date Diagnosed Date Resolved Date Rosacea 06/16/2022 03/25/2025 Fibromyalgia 01/17/2016 06/16/2022 Overview (02/08/2022): Last Assessment & Plan: Condition: asymptomatic Patient denies pain at this telehealth visit today. Patient is asymptomatic at this visit. Continue medications as prescribed and follow up with PCP/specialist as scheduled. Follow up in: three months Encounters Date Type Department Care Team Description 03/25/2025 8:00 AM CDT Office Visit [facility] Rhe[facility] [address] [facility] 5[address] [place] [address] [place] [address] Ruben Cantor MD PhD Seronegative arthritis (Primary Dx); Positive KAYLEE (antinuclear antibody); ESR raised; Tardive dyskinesia from Last 3 Months Surgical History Surgery Date Site/Laterality Comments [place] LIG/TRNSXJ FLP TUBE ABDL/ VAG APPR UNI/BI [...] Conv) Hypertension Other Hypertension - (Added by TW Conv) Relation Name Status Comments Other Social History Tobacco Use Types Packs/Day Years Used Date Smoking Tobacco: Never Smokeless Tobacco: Never Comments Unknown Sex and Gender Information Value Date Recorded Sex Assigned at Not on file Legal Sex Female 9:45 PM SIGNAL INSPECTOR Gender Identity Female 12/23/2024 8:20 AM CDT Sexual Orientation Choose not to disclose 2024 8:20 AM CDT Last Filed Vital Signs Vital Sign Reading Time Taken Comments Blood Pressure 113/80 03/25/2025 7:47 AM CDT Pulse 98 03/25/2025 7:47 AM CDT Temperature 37.5 C (99.5 F) 03/25/2025 7:47 AM CDT Respiratory Rate - - Oxygen Saturation - - Inhaled Oxygen Concentration - - Weight 105.2 kg (232 lb) 03/25/2025 7:47 AM CDT Height 162.6 cm (5' 4) 03/25/2025 7:47 AM CDT Body Mass Index 39.82 03/25/2025 7:47 AM CDT Plan of Treatment Health Maintenance Due Date Last Done Comments Cervical Cancer Screening 1981 Depression Screening 1981 Hepatitis C Screening 1981 Varicella Vaccines (1 of 2 - 13+ 2-dose series) 1994 Hepatitis B Screening 1999 Regular Well Visit/Exam 18-64 1999 Zoster Vaccine (1 of 2) 02/27/2000 HPV Vaccines (3 - 3-dose SCD M series) 12/12/2021 08/20/2021, 06/13/2021 Pneumococcal vaccine <65 (2 of 2 - PPSV23, PCV20, or PCV21) 06/27/2022 05/02/2022 Covid-19 Vaccine (2024-2 6 season) 2025 06/13/2021, 10/19/2020, 09/21/2020 Influenza Vaccine (#1) 2025 , 04/11/2021, 04/19/2020, Additional history exists Breast Cancer Screening-Mammogram 10/23/2025 025, 10/23/2024 DTaP/Tdap/Td Vaccine (2 - Td or Tdap) 05/02/2032 05/02/[address] [facility] [employer] MEDICARE GOLD Care Teams Arch Cushion Skiving Machine Operator Relationship Specialty Start Date End Date Rhea Gay MD PCP - General 02/18/17
--- OUTSIDE RECORDS SUMMARY | 2025-05-17 12:20 | XMS_ITS | Clinical Summary ---
Author Organization [facility] Address [address] [place] [address] Care Team Providers Care Lien Searcher Name Role Phone Sergio Olivares MD Unavailable Rhea Gay MD Primary Care Provider [phone] Source Comments [facility],non-owned Affiliates and Associated Physician Practices is amultiple site organization consisting of ambulatory clinics and hospital sitesin [place], [place], [place] and [place]. This disclosure is being madepursuant to the Care Everywhere program and may not contain all information available regarding this patient. Last updated 18.[facility] Allergies Active Allergy Reactions Criticality Noted Date Comments Azithromycin Urticaria,Rash,Unkno wn,G I Discomfort Medium 09/10/2009 And abd pain Coconut Oil Urticaria,Itching Medium Hydromorphone Urticaria,Rash,GI Discomfort Medium 11/21/2014 And abd pain Levonorgest-Eth Estrad Urticaria Medium 06/10/2016 [place] Itching 07/27/2021 Medications * Be aware that medications may not be up to date on this document. Alwaysverify current medications with the patient. VIVITROL injection Use as direceted. 05/29/2020 Active acyclovir (ZOVIRAX) 800 MG tablet Take 800 mg by mouth once daily 03/29/2020 Active LATUDA 20 MG tablet Take 20 mg by mouth once daily 12/19/2020 Active trihexyphenidyl (ARTANE) 5 MG tablet Take 1 tablet by mouth 2 times daily 12/24/2020 Active DULoxetine (CYMBALTA) 30 MG capsule 60 mg 01/22/2021 Active Etonogestrel (NEXPLANON SC) Activ e traZODone (DESYREL) 50 MG tablet Take 50 mg by mouth at bedtime Active CALCIUM + VITAMIN D3 600-10 MG-MCG Take 1 tablet by mouth 2 times daily 04/11/2021 Active DULoxetine (CYMBALTA) 60 MG capsule Take 1 capsule by mouth 2 times daily 04/18/2021 Active Multiple Vitamin (DAILY-CURT MULTIVITAMIN) TABS Take 1 tablet by mouth once daily 04/11/2021 Active hydroxychloroqu ine (PLAQUENIL) 200 MG tabletIndicatio ns:KAYLEE positive,Elevat ed CK,Long-term use of Plaquenil Take 1 (one) tablet by mouth 2 times daily 180 tablet 07/04/2021 Active INGREZZA 80 MG CAPS Take 1 capsule by mouth once daily 07/26/2021 Active albuterol HFA (Proventil; Ventolin; Proair) 108 (90 Base) MCG/ACT inhaler INHALE 2 PUFFS BY MOUTH 4 TIMES A DAY 2022 Active butalbital-acet aminophen-caffe ine (Fioricet) 50-300-40 MG capsuleIndicati ons:Migraine with aura and without status migrainosus, not intractable,Sin us headache Take 1 (one) capsule by mouth every 4 hours as needed for Headache or Migraine 30 capsule 1 05/02/2022 Active Active Problems Problem Noted Date Diagnosed Date Major depression 05/01/2022 Positive KAYLEE (antinuclear antibody) 02/08/2022 Inflammatory arthritis 07/27/2021 Overview (05/01/2022): Last Assessment & Plan: Condition: asymptomatic Patient denies pain at this telehealth visit today. Patient is asymptomatic at this visit. Continue medications as prescribed and follow up with PCP/specialist as scheduled. Follow up in: six months Bipolar disorder 06/06/2020 Overview (05/01/2022): Last Assessment & Plan: Condition: stable Last [...] Follow up in three months with Psychologist/Counselor/SupportGroup/Psychiatrist Vitamin D deficiency 01/09/2017 Overview (05/01/2022): Last Assessment & Plan: Images from the original note were not included. Condition: asymptomatic No recent labs in chart. Patient is asymptomatic at this visit. Continue medications as prescribed and follow up with PCP/specialist as scheduled. Follow up in: six months Abnormal ECG 11/01/2016 Edema 11/01/2016 Fibromyalgia 01/17/2016 Migraine without status migrainosus, not intract able 05/08/2015 Overview (05/01/2022): Last Assessment & Plan: Condition: asymptomatic Patient is asymptomatic at this visit. Continue medications as prescribed and follow up with PCP/specialist as scheduled. Follow up in: six months Mixed connective tissue disease 05/08/2015 Overview (05/01/2022): Last Assessment & Plan: Condition: asymptomatic Patient denies pain at this telehealth visit today. Patient is asymptomatic at this visit. Continue medications as prescribed and follow up with PCP/specialist as scheduled. Follow up in: three months Diffuse connective tissue disease 03/07/2015 Overview (04/06/2015): Dx Dr. Hansen mid 2014 based on fatigue; maylgias; arthralgias. KAYLEE 1:80; JAI (-). Steroid responsive. Pl;aced on Plaquenil/ low dose prednisone. Family history of diabetes mellitus 01/22/2011 Asthma 09/09/2009 Overview (05/01/2022): Last Assessment & Plan: Condition: asymptomatic Reviewed trigger avoidance and reviewed proper use of inhalers and rescue medications. Reviewed concerning signs/symptoms and ER precautions. Follow up in: three months Immunizations Immunization Administration Dates Next Due INFLUENZA VACCINE, TRIV. (AF LURIA, FLUZONE TRIVALENT; 6MO+) (IIV3) 04/23/2016 Covid Moderna primary monovalent 12+ yr 0.5mL ,09/27/2020 FLU VACCINE QUAD IIV4 SPLIT 0.25 ML IM 5 Human Papilloma Virus Ninevalent Vaccine 022,06/13/2021 INFLUENZA VACCINE 04/20/2021 INFLUENZA VACCINE, CELL CULT URE, QUADR. (FLUCELVAX QUADRIVALENT; 6MO+), 0.5 ML (CCIIV4) 04/19/2020 INFLUENZA VACCINE, QUADR. (A FLURIA, FLUZONE QUADRIVALENT; 6MO+) (IIV4) 05/10/2019,04/10/2017 INFLUENZA VACCINE, QUADR. (F LUZONE; FLULAVAL; FLUARIX; AFLURIA QUADRIVALENT; 6MO+), 0.5 ML (IIV4) 04/11/2021,07/17/2018 PNEUMOCOCCAL PCV20 CONJ VAC IM 05/02/2022 TDAP (7yrs+) 05/02/2022 Family History Medical History Relation Name Comments Asthma Father Diabetes Father Hypercholesterolemia Father Stroke Father Thyroid Disease Maternal Aunt 1 Lupus Maternal Aunt 2 Rheumatological Disease Maternal Uncle Migraine Sister Relation Name Status Comments Father Maternal Aunt 1 Maternal Aunt 2 Maternal Uncle Sister Social History Tobacco Use Types Packs/Day Years Used Date Smoking Tobacco: Never Smokeless Tobacco: Never Alcohol Use Standard Drinks/Week Comments No 0 (1 standard drink = 0.6 oz pur e alcohol) PHQ-2 Answer Date Recorded PHQ2 TOTAL SCORE 2 05/02/2022 Comments No Sex and Gender Information Value Date Recorded Sex Assigned at Female 12/12/2022 7:42 PM CDT Legal Sex Female 6:00 AM CHAIN MAKER HAND Gender Identity Not on file Sexual Orientation Not on file 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 Not on file Not on file Last Filed Vital Signs Vital Sign Reading Time Taken Comments Blood Pressure 108/60 05/02/2022 2:10 PM CDT Pulse 95 05/02/2022 2:10 PM CDT Temperature 37.1 C (98.8 F) 05/02/2022 2:10 PM CDT Respiratory Rate 20 02/20/2021 10:14 AM CDT Oxygen Saturation 100% 05/02/2022 2:10 PM CDT Inhaled Oxygen Concentration - - Weight 111.1 kg (245 lb) 10/23/2024 11:08 AM CDT Height 162.6 cm (5' 4) 10/23/2024 11:08 AM CDT Body Mass Index 42.05 10/23/2024 11:08 AM CDT Plan of Treatment Health Maintenance Due Date Last Done Comments LIPID TESTING 1981 HEPATITIS B VACCINE (1 of 3 - 19+ 3-dose series) 02/27/2000 PAP SMEAR 08/26/2020 08/26/2017 (Done Outside Per Report), 01/22/2011 HPV VACCINE (3 - 3-dose SCDM series) 12/12/2021 08/20/2021, 06/13/2021 SCREENING FOR DIABETES 02/21/2024 , 01/11/2021, 11/16/2019, Additional history exists MEDICARE AWV CALENDAR YEAR 2024 05/02/2022 COVID-19 VACCINE ( season) 2025 06/13/2021, 10/19/2020, 10/18/2020, Additional history exists INFLUENZA VACCINE (#1) 2025 , 04/11/2021, 04/19/2020, Additional history exists MAMMOGRAM 10/23/2026 10/23/2024 ZOSTER VACCINE (1 of 2) 2031 DTAP/TDAP/TD VACCINES (2 - Td or Tdap) 05/02/2032 05/02/2022 HEPATITIS C SCREENING Completed 01/11/2021 HIV SCREENING Completed 02/20/2021 PNEUMOCOCCAL VACCINE Completed 05/02/2022 HIB VACCINE Aged Out No longer eligi ble based on patient's age to complete this topic MENINGOCOCCAL (Group B) VACCINE SHARED DECISION-MAKING Aged Out No longer eligible based on patient's age to complete this topic MENINGOCOCCAL GROUPS A/C/Y/W VACCINE Aged Out No longer eligible based on patient's age to complete this topic Procedures Procedure Name Priority Date/Time Associated Diagnosis Comments MAMMO BILAT SCREENING W JACOBO Routine 10/23/2024 11:26 AM CDT Encounter for screening mammogram for breast cancer COMPREHENSIVE METABOLIC PANEL Routine 02/20/2021 11:27 AM CDT TB lung, latent HIV-1 HIV-2 ANTIBODY + HIV P24 AG PANEL Routine 02/20/2021 11:27 AM CDT TB lung, latent HEPATITIS C AB SCREEN RFLX NAAT QUANT Routine 01/11/2021 2:21 PM CDT KAYLEE positive from Last 3 Months or Most Recently Relevant to Health Maintenance Results * Mammo Bilat Screening W Jacobo (10/23/2024 11:26 AM CDT) Anatomical Region Laterality Modality Breast Bilateral Mammography 11/08/2024 11:4 0 AM CDT Impressions 11/08/2024 11:40 AM CDT IMPRESSION: No mammographic evidence of malignancy in either breast. ASSESSMENT: BIRADS Category 1: Negative mammogram. RECOMMENDATION: Bilateral screening mammogram in one year. Thank you for allowing us to participate in the care of your patient. [facility] utilizes [employer] as a reminder system to notify patients of their next recommended mammogram. > Interpreting Provider: Cherise Sears MD on 11/08/2024 11:40 AM Narrative 11/08/2024 11:40 AM CDT EXAMINATION: Digital screening mammogram. Low-dose full-field digital breast tomosynthesis examination was performed with synthetic 2D images. Computer assisted detection was utilized. DATE: 10/23/2024 11:31 AM PRIOR: 2020 incomplete outside imaging BREAST PARENCHYMAL DENSITY: There are scattered areas of fibroglandular density. FINDINGS: No suspicious masses, areas of architectural distortion or microcalcifications are evident on synthetic 2D mammogram or tomosynthesis images. Scribed Niki Rey MEDICAL LANGUAGE SPECIALIST-CATHETERIZATION LABORATORY TECHNICIAN MAMMO ORDERABLES Fin al Result * HIV-1 HIV-2 ANTIBODY + HIV P24 AG PANEL (New on 11/20) (02/20/2021 11:27 AM CDT) Pathologist [facility] HIV Antigen/Antibod y 1 & 2 Non-reacti ve Non-react tatyana 02/20/2021 12:18 PM [facility] Comment:Neither HIV-1 p24 An tigen nor HIV-1/HIV-2 Antibodies are detected. Blood BLOOD SPECIMEN / Unknown Lab Venipuncture / Unknown 02/20/2021 11:27 AM CDT 02/20/2021 11:46 AM CDT Shelly Carpenter MD LAB - CHEMISTRY O RDERABLES Final Result Performing Organization Address City/State/[facility] Co de Phone Number [facility] [address] [place] [phone], [facility] [phone] * (ABNORMAL) COMPREHENSIVE METABOLIC PANEL (02/20/2021 11:27 AM CDT) [facility] BUN 10 7 - 26 mg/dL 02/20/2021 12:13 PM [facility] Creatinine 0.74 0.56 - 0.96 mg/dL 02/20/2021 12:13 PM [facility] Sodium 143 136 - 145 mmol/L 02/20/2021 12:13 PM [facility] Potassium 4.1 3.5 - 4.5 mmol/L 02/20/2021 12:13 PM [facility] Chloride 108(H) 98 - 107 mmol/L 02/20/2021 12:13 PM [facility] CO2 27 22 - 29 mmol/L 02/20/2021 12:13 PM [facility] Glucose 83 70 - 115 mg/dL 02/20/2021 12:13 PM [facility] Calcium 9.2 8.4 - 10.2 mg/dL 02/20/2021 12:13 PM [facility] Protein Total 7.9 6.0 - 8.3 g/dL 02/20/2021 12:13 PM [facility] Albumin 3.4 3.4 - 5.0 g/dL 02/20/2021 12:13 PM [facility] Bilirubin Total 0.2 0.2 - 1.2 mg/dL 02/20/2021 12:13 PM [facility] Alkaline Phosphatase 115 40 - 150 U/L 02/20/2021 12:13 PM [facility] ALT 9 5 - 55 U/L 02/20/2021 12:13 PM [facility] AST 15 5 - 34 U/L 02/20/2021 12:13 PM [facility] Anion Gap 12 8 - 18 02/20/2021 12:13 PM [facility] BUN/Creatinine Ratio 14 7 - 23 02/20/2021 12:13 PM [facility] Osmolality Calculated 294 270 - 300 mOsm/kg 02/20/2021 12:13 PM [facility] Albumin/Globulin Ratio 0.8(L) 1.1 - 2.3 02/20/2021 12:13 PM [facility] eGFR by CKD-EPI >90 >=90 mL/min/1.7 3 m2 02/20/2021 12:13 PM [facility] Blood BLOOD SPECIMEN / Unknown Lab Venipuncture / Unknown 02/20/2021 11:27 AM CDT 02/20/2021 11:41 AM [facility] Jayden DONOVAN LAB - CHEMISTRY O RDERABLES Final Result [facility] [address] [place] [phone], [facility] [phone] * HEPATITIS C AB SCREEN RFLX NAAT QUANT (01/11/2021 2:21 PM CDT) Hepatitis C Antibody Non-react tatyana Non-reac tive 01/11/2021 4:36 PM [facility] Comment:Hepatitis C Antibody screen indicates no serologic evidence of past or current infection with Hepatitis C Virus. Patients with unexplained liver disease who are immunocompromised or suspected of having acute Hepatitis C infection may benefit from Nucleic Acid Test (BRANDY) for Hepatitis C Viral RNA to confirm Hepatitis C status. Blood BLOOD SPECIMEN / Unknown Lab Venipuncture / Unknown 01/11/2021 2:21 PM CDT 01/11/2021 2:32 PM CDT Delicia Santana MD LAB - CHEMISTRY ORDERABLES [facility] Result [facility] [address] [place] [address], [facility] [phone] from Last 3 Months or Most Recently Relevant to Health Maintenance Insurance AETNA MEDICARE ADV Care Teams Lien Searcher Relationship Specialty Start Date End Date Rhea Gay MD [address] [place] [address] PCP - General Family Medicine 05/02/22 [place] [address] [place] [phone] [facility] 11/09/15
--- OUTSIDE RECORDS SUMMARY | 2025-05-17 12:20 | XMS_ITS | Encounter Summary ---
Author Organization [facility] Address [address] [place] [address] Care Team Providers Care Resident Care Manager Name Role Phone Sergio Olivares MD Unavailable Jacky Perez MD Primary Care Provider [phone] Rhea Gay MD Primary Care Provider [phone] Reason for Visit * Reason Onset Date Comments MEDICATION REFILL 06/01/2018 Encounter Details Date Type Department Care Team (Late st Contact Info) Description 06/01/2018 Refill [facility] [address] [place] [address] Arnulfo Puente MD MEDICATION REFILL Social History Tobacco Use Types Packs/Day Years Used Date Smoking Tobacco: Never Smokeless Tobacco: Never Alcohol Use Standard Drinks/Week Comments No 0 (1 standard drink = 0.6 oz pur e alcohol) Comments No Sex and Gender Information Value Date Recorded Sex Assigned at Female 12/12/2022 7:42 PM CDT Legal Sex Female 6:00 AM MILITARY PAY CLERK Gender Identity Not on file Sexual Orientation Not on file 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 Not on file Not on file documented as of this encounter Miscellaneous Notes * Telephone Encounter - Arnulfo Puente MD - 06/01/2018 4:08 PM MILITARY PAY CLERK Treatment was for 12 weeks only TARY PAY CLERK documented in this encounter Plan of Treatment Not on file documented as of this encounter Visit Diagnoses Not on filedocumented in this encounter Care Teams Resident Care Manager Relationship Specialty Start Date End Date Jacky Perez MD [address] [place] [address] PCP - General 02/09/18 05/01/22 Rhea Gay MD [address] [facility] [place] [phone] PCP - General Family Medicine 05/02/22 [place] [address] [facility] [address] [place] [phone] Rheumatology 11/09/15 documented as of this encounter
--- OUTSIDE RECORDS SUMMARY | 2025-05-17 12:20 | XMS_ITS | Patient Health Record ---
Author Organization [facility] Address [address] [place] [address] Care Team Providers Care Analyst Geochemical Prospecting Name Role Phone Juliano Goldman Primary Care Provider Allergies Allergen (clinical drug ingredient) Drug/Non Drug Allergy documented on EMR Reaction Allergy Type Onset Date Status azithromycin Azithromycin Unknown Drug Allergy A ctive hydromorphone Dilaudid Unknown Drug Allergy Act tatyana Reason For Referral No Information Medications Medication SIG (Take, Route, Fr equency, Duration) Notes Start Date End Date Status DULoxetine HCl 60 MG 1 capsule Orally Once a day Active DULoxetine HCl 30 MG 1 capsule Orally Once a day Active Latuda 40 MG 1 tablet in the even ing with food Orally Once a day; Duration: 30 days Active Vivitrol 380 MG as directed Intramuscular Active Ingrezza 80 MG 1 capsule Orally Once a day Active Immunizations Vaccine Route Administration Date Status Comme nts COVID-19 Moderna 2nd IM Intramuscular 10/19/2020 Administwill red COVID-19 Moderna 1ST IM Intramuscular 09/21/2020 Adminconsuelo simms Social History Tobacco Use: Social History Observation Description Date Details (start date - stop date) Never Smoker NA - NA Dont use, Tobacco Use/Smoking Question Answer Notes Are you a nonsmoker Problems Problem Type SNOMED Code ICD Code Onset Dates Problem Status W/U Status Risk Notes Problem Bipolar 1 disorder (462149353) Bipolar 1 disorder (F31.9) Active confirmed Plan Of Treatment No Information Insurance Providers Payer Name Payer Address Payer Phone Subscriber Number Group Number Insured Name Patient Relationship to Insured Coverage Start Date Coverage End Date [employer] [address] [place] [address] [id number] Rimma Barajas Self - patient is the insured 1 [facility] [address] [place] [address] [id number] Rimma Barajas Self - patient is the insured 1 MEDICARE PART A [address] [place] [address] [id number] Rimma Barajas Self - patient is the insured 1 Medical (General) History Medical History History ICD Code DEPRESSION TARDIVE DISCONESIA ALCOHOL USE DISORDER Surgical History Surgery Date(Month/Year) LEFT ELBOW- MENTAL PLATE & RODS PLACED TUBAL LIGATION Hospitalization History Reason Date(Month/Year) [facility] ( [facility]YS ) 201 4
--- OUTSIDE RECORDS SUMMARY | 2025-05-17 13:09 | XMS_ITS | Encounter Summary ---
Author Organization [facility] Address [address] [place] [address] Care Team Providers Care Nutrition Internship Name Role Phone Sergio Olivares MD Unavailable Jacky Perez MD Primary Care Provider + [phone] Rhea Gay MD Primary Care Provider [phone] Reason for Visit * Reason Onset Date Comments MEDICATION REFILL 06/01/2018 Encounter Details Date Type Department Care Team (Late st Contact Info) Description 06/01/2018 Refill [facility] [address] [place] [address] Arnulfo Puente MD MEDICATION REFILL Social History Tobacco Use Types Packs/Day Years Used Date Smoking Tobacco: Never Smokeless Tobacco: Never Alcohol Use Standard Drinks/Week Comments No 0 (1 standard drink = 0.6 oz pur e alcohol) Comments No Sex and Gender Information Value Date Recorded Sex Assigned at Female 12/12/2022 7:42 PM CDT Legal Sex Female 6:00 AM FARMWORKER VEGETABLE Gender Identity Not on file Sexual Orientation Not on file 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 Not on file Not on file documented as of this encounter Miscellaneous Notes * Telephone Encounter - Arnulfo Puente MD - 06/01/2018 4:08 PM FARMWORKER VEGETABLE Treatment was for 12 weeks only WORKER VEGETABLE documented in this encounter Plan of Treatment Not on file documented as of this encounter Visit Diagnoses Not on filedocumented in this encounter Care Teams Nutrition Internship Relationship Specialty Start Date End Date Jacky Perez MD [address] [place] [phone] PCP - General 02/09/18 05/01/22 Rhea Gay MD [address] [facility] [place] [phone] PCP - General Family Medicine 05/02/22 [place] [address] [facility] [address] [place] [phone] Rheumatology 11/09/15 documented as of this encounter
--- OUTSIDE RECORDS SUMMARY | 2025-05-17 13:10 | XMS_ITS | Clinical Summary ---
Author Organization [facility] Address [address] [place] [phone] Care Team Providers Care Pediatric Registered Nurse Name Role Phone Rhea Gay MD Primary [...] Levonorgest-Eth.Estradio l-Iron Other (See comments) Medium 06/10/2016 [place] Hives Medium 07/27/2021 Medications albuterol HFA (PROVENTIL [...] Description 03/25/2025 8:00 AM CDT Office Visit [facility] Medicine Rheumatology [address] [facility] 5[address] [place] [address] [place] [address] Ruben Cantor MD PhD Seronegative arthritis (Primary Dx); Positive KAYLEE (antinuclear antibody); ESR raised; Tardive dyskinesia from Last 3 Months Surgical History Surgery Date Site/Laterality Comments DC LIG/TRNSXJ FLP TUBE ABDL/ VAG APPR UNI/BI [...] on file Legal Sex Female 9:45 PM EYE TECHNICIAN Gender Identity Female 12/23/2024 8:20 AM CDT [...] - Td or Tdap) 05/02/2032 05/02/2022 Insurance [facility] AETNA MEDICARE GOLD Care Teams Pediatric Registered Nurse Relationship Specialty Start Date End Date Rhea Gay MD PCP - General 02/18/17
--- OUTSIDE RECORDS SUMMARY | 2025-05-17 13:10 | XMS_ITS | Clinical Summary ---
Author Organization [facility] Address [address] [place] [address] Care Team Providers Care Automotive Lot Attendant Name Role Phone Sergio Olivares MD Unavailable Rhea Gay MD Primary Care Provider [phone] Source Comments [facility],non-owned Affiliates and Associated Physician Practices is amultiple site organization consisting of ambulatory clinics and hospital sitesin [place], [place], [place] and [place]. This disclosure is being madepursuant to the Care Everywhere program and may not contain all information available regarding this patient. 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 [facility] utilizes [employer] as a reminder system to notify patients [...] mammogram or tomosynthesis images. Scribed Niki Rey BRUSHING OPERATOR-CHART COMPUTER MAMMO ORDERABLES Fin al Result * HIV-1 HIV-2 ANTIBODY + HIV P24 AG PANEL (New on 11/20) (02/20/2021 11:27 AM CDT) Pathologist [facility] HIV Antigen/Antibod y 1 & 2 Non-reacti ve Non-react tatyana 02/20/2021 12:18 PM [facility] Comment:Neither HIV-1 p24 An tigen nor HIV-1/HIV-2 Antibodies are detected. Blood BLOOD SPECIMEN / Unknown Lab Venipuncture / Unknown 02/20/2021 11:27 AM CDT 02/20/2021 11:46 AM CDT Shelly Carpenter MD LAB - CHEMISTRY O RDERABLES Final Result Performing Organization Address City/State/[facility] Co de Phone Number [facility] [address] [place] [phone], [facility] [phone] * (ABNORMAL) COMPREHENSIVE METABOLIC PANEL (02/20/2021 11:27 AM CDT) [facility] BUN 10 7 - 26 mg/dL 02/20/2021 12:13 PM [facility] Creatinine 0.74 0.56 - 0.96 mg/dL 02/20/2021 12:13 PM [facility] Sodium 143 136 - 145 mmol/L 02/20/2021 12:13 PM [facility] Potassium 4.1 3.5 - 4.5 mmol/L 02/20/2021 12:13 PM [facility] Chloride 108(H) 98 - 107 mmol/L 02/20/2021 12:13 PM [facility] CO2 27 22 - 29 mmol/L 02/20/2021 12:13 PM [facility] Glucose 83 70 - 115 mg/dL 02/20/2021 12:13 PM [facility] Calcium 9.2 8.4 - 10.2 mg/dL 02/20/2021 12:13 PM [facility] Protein Total 7.9 6.0 - 8.3 g/dL 02/20/2021 12:13 PM [facility] Albumin 3.4 3.4 - 5.0 g/dL 02/20/2021 12:13 PM [facility] Bilirubin Total 0.2 0.2 - 1.2 mg/dL 02/20/2021 12:13 PM [facility] Alkaline Phosphatase 115 40 - 150 U/L 02/20/2021 12:13 PM [facility] ALT 9 5 - 55 U/L 02/20/2021 12:13 PM [facility] AST 15 5 - 34 U/L 02/20/2021 12:13 PM [facility] Anion Gap 12 8 - 18 02/20/2021 12:13 PM [facility] BUN/Creatinine Ratio 14 7 - 23 02/20/2021 12:13 PM [facility] Osmolality Calculated 294 270 - 300 mOsm/kg 02/20/2021 12:13 PM [facility] Albumin/Globulin Ratio 0.8(L) 1.1 - 2.3 02/20/2021 12:13 PM [facility] eGFR by CKD-EPI >90 >=90 mL/min/1.7 3 m2 02/20/2021 12:13 PM [facility] Blood BLOOD SPECIMEN / Unknown Lab Venipuncture / Unknown 02/20/2021 11:27 AM CDT 02/20/2021 11:41 AM [facility] Jayden DONOVAN LAB - CHEMISTRY O RDERABLES Final Result [facility] [address] [place] [phone], [facility] [phone] * HEPATITIS C AB SCREEN RFLX NAAT QUANT (01/11/2021 2:21 PM CDT) Hepatitis C Antibody Non-react tatyana Non-reac tive 01/11/2021 4:36 PM [facility] Comment:Hepatitis C Antibody screen indicates no serologic [...] MD LAB - CHEMISTRY ORDERABLES [facility] Result [facility] [address] [place] [address], [facility] [phone] from Last 3 Months or Most Recently Relevant to Health Maintenance Insurance [employer] MEDICARE ADV Care Teams Automotive Lot Attendant Relationship Specialty Start Date End Date Rhea Gay MD [address] [place] [phone] PCP - General Family Medicine 05/02/22 [place] [id number] [place] [phone] [facility] 11/09/15
--- NOTE | 2025-05-17 13:25 | ED_ITS ---
HPI - General Adult General Chief complaint: Nausea/Vomiting/Diarrhea Stated complaint: vomiting x 3 weeks Time Seen by Provider: 05/17/25 12:56 History of Present Illness HPI narrative: 45-year-old female present to the emergency department for evaluation for 3 weeks of nausea vomiting diarrhea and pain with urination. Patient states that she has had decreased p.o. intake. Patient does report pain with urination and diffuse abdominal pain worse than the left lower quadrant. Related Data Allergies Allergy/AdvReac Type Severity Reaction Status Date / Time hydromorphone Allergy Severe NAUSEA AND Verified 05/17/25 13:51 SOB azithromycin Allergy Unknown Hives Verified 05/17/25 13:51 Review of Systems 2 Review of Systems: All systems reviewed & are unremarkable except as noted in HPI and below PMFSH Past Medical History Medical History (Updated 05/17/25 @ 15:13 by Shawn Gonsalves MD) History of hypertension Exam 2 Narrative: APPEARANCE: Well appearing, no pain, no distress, well-nourished. HEAD: normocephalic, atraumatic. EYES: PERRLA/EOMI, conjunctivae clear. NOSE: Normal no drainage EARS:TMS clear with good light reflex. THROAT: Pharynx clear, no exudate. NECK: Supple. No adenopathy, no masses. RESPIRATORY: Airway patent, respirations nonlabored. Clear to auscultation bilaterally, no rales, rhonchi, wheezing. CARDIOVASCULAR: Regular rate and rhythm without murmurs rubs or gallops. ABDOMINAL: No evidence of peritonitis, normal bowel sounds, diffuse abdominal tenderness worse in the left lower quadrant MUSCULOSKELETAL: Moves all extremities. Strength/ROM intact, No edema, No calf tenderness. NEURO: Alert. Cranial nerves II through XII intact. Good gait. Good coordination SKIN: Warm, dry. Normal Color PSYCHIATRIC: Normal affect/mood. Course Vital Signs Vital signs: Vital Signs Temperature 97.8 F 05/17/25 12:02 Pulse Rate 81 05/17/25 12:02 Respiratory Rate 16 05/17/25 12:02 Blood Pressure 129/81 05/17/25 12:02 Pulse Oximetry 100 05/17/25 12:02 Oxygen Delivery Room Air 05/17/25 12:02 Temperature 98 F 05/17/25 15:29 Pulse Rate 79 05/17/25 15:29 Respiratory Rate 14 05/17/25 15:29 Blood Pressure 137/86 05/17/25 15:29 Pulse Oximetry 99 05/17/25 15:29 Oxygen Delivery Room Air 05/17/25 12:02 Medical Decision Making [facility] Narrative Medical decision making narrative: 45-year-old female present to the emergency department for evaluation for multiple weeks of lower abdominal pain and urinary symptoms. Patient is currently afebrile with no leukocytosis and hemoglobin of 13.4. Patient has no acute abnormalities on her CMP with normal AST ALT. Minor elevation in alk-phos but normal lipase. UA is negative for infection negative for hematuria. CT abdomen pelvis was ordered to evaluate for colitis/diverticulitis, appendicitis and this was negative. Patient was advised to switch to a clear liquid diet for the next few days and patient is being provided medications for nausea control. Patient was encouraged of close follow-up with GI. All questions concerns were addressed patient was comfortable the plan for discharge and close follow-up. Differential Diagnosis Differential Diagnosis: Colitis, diverticulitis, urinary tract infection, ureteral calculi Vital Signs Vital Signs: Vital Signs Temperature 97.8 F 05/17/25 12:02 Pulse Rate 81 05/17/25 12:02 Respiratory Rate 16 05/17/25 12:02 Blood Pressure 129/81 05/17/25 12:02 Pulse Oximetry 100 05/17/25 12:02 Oxygen Delivery Room Air 05/17/25 12:02 Temperature 98 F 05/17/25 15:29 Pulse Rate 79 05/17/25 15:29 Respiratory Rate 14 05/17/25 15:29 Blood Pressure 137/86 05/17/25 15:29 Pulse Oximetry 99 05/17/25 15:29 Oxygen Delivery Room Air 05/17/25 12:02 Lab Data Lab results reviewed: Yes I reviewed the patient's lab results. 05/17/25 13:53 05/17/25 13:53 Labs: Lab Results 05/17/25 05/17/25 05/17/25 Range/Units 13:53 14:12 14:15 WBC 6.4 (4.5-10.0) K/mm3 RBC 4.60 (4.2-5.4) M/mm3 Hgb 13.4 (12.0-15.0) g/dL Hct 42.5 (37.0-47.0) % MCV 92.4 (80-100) fl MCH 29.1 (26-34) pg MCHC 31.5 L (32-36) g/dl RDW 12.9 (11.5-14.5) % Plt Count 319 (150-375) k/mm3 MPV 9.1 (7.4-10.4) fl Immature Gran % (Auto) 0.0 (0-0.5) % Neut % (Auto) 54.8 (45.5-73.1) % Lymph % (Auto) 31.3 (18.3-44.2) % Baldwin % (Auto) 8.5 (2.6-8.5) % Eos % (Auto) 4.9 H (0-4.4) % Baso % (Auto) 0.5 (0.2-1.2) % Lymph # (Auto) 2.00 (0.9-3.2) K/mm3 Baldwin # (Auto) 0.5 (0.1-0.6) K/mm3 Eos # (Auto) 0.3 (0-0.3) K/mm3 Baso # (Auto) 0.0 (0.0-0.1) K/mm3 Abs Immat Gran (auto) 0.00 (0.00-0.031) K/mm3 Absolute Neuts (auto) 3.5 (1.3-6.7) K/mm3 Absolute Nucleated RBC 0.000 (0.0-0.012) K/mm3 Nucleated RBC % 0.0 (0.0-0.2) % Sodium 140 (137-145) mmol/L Potassium 3.8 (3.4-5.0) mmol/L Chloride 103 (98-107) mmol/L Carbon Dioxide 29 (22-30) mmol/L Anion Gap 8 (4-12) mmol/L BUN 9 D (7-17) mg/dL Creatinine 0.96 (0.7-1.0) mg/dL Estim Creat Clear Calc 77 ml/min Estimated GFR > 60 (59 - ) Glucose 94 (65-110) mg/dL Calcium 9.5 (8.4-10.2) mg/dL Total Bilirubin 0.4 (0.2-1.3) mg/dL AST 28 (14-36) U/L ALT 12 (6-35) U/L Alkaline Phosphatase 141 H (38-126) U/L Total Protein 9.7 H (6.3-8.2) g/dL Albumin 4.5 (3.5-5.1) g/dL Lipase 82 (23-300) U/L Urine Color Yellow (Yellow) Urine Appearance Clear (Clear) Urine pH 6.5 (5.0-9.0) Ur Specific [place] 1.022 (1.001-1.035) Urine Protein Negative (Negative) mg/dL Urine Glucose (UA) Negative (Negative) mg/dL Urine Ketones Negative (Negative) mg/dL Ur Blood (Man) Negative (Negative) Urine Nitrate Negative (Negative) Urine Bilirubin Negative (Negative) Urine Urobilinogen 0.2 (<2.0) mg/dL Leukocyte Esterase Rfl Negative (Negative) BOZENA/UL POC Urine HCG, Qual Negative (Negative) Imaging Data Radiologist's impression: Impressions Abdomen/Pelvis CT 05/17/25 14:36 IMPRESSION: 1. No acute surgical abnormality identified. 2. Several infiltrative areas in the gluteal subcutaneous soft tissues probably from recent injections. Correlate with clinical exam. 3. Possible mild thickened urinary bladder wall. Correlate with urinalysis. Discharge Plan Discharge Clinical Impression: Nausea vomiting and diarrhea Patient Disposition: Home Condition: Stable Instructions: Antibiotic Form, Clear Liquid Diet (ED), Acute Nausea and Vomiting (ED) Additional Instructions: Clear liquid diet for the next 1-3 days. Zofran as needed for nausea control. Have close follow-up with your primary care physician. Have close follow-up with GI. If you have worsening symptoms please call or return to the emergency department. Patient Language: Gambian Prescriptions: New ondansetron 4 mg tablet,disintegrating 4 mg PO Q8H PRN (Reason: nausea and vomiting) 5 Days Qty: 14 0RF Follow-up/Referrals: Candido,Niki Browning APRN [Primary Care Provider, Unknown] Tommie Tanner MD [Physician, Gastroenterology]
[2025-05-17] MEDS: ONDANSETRON INJ 4 MG/2 ML VIAL IV PUSH (13:51)
[2025-05-17] MEDS: LACTATED RINGERS 1,000 ML 999 ML IV CONT (13:52)
[2025-05-17 13:58] LABS: Hematocrit 42.5 % (37.0-47.0); Hemoglobin 13.4 g/dL (12.0-15.0); Immature Granulocyte Percent A 0.0 % (0-0.5); Lymphocytes Absolute Auto 2.00 K/mm3 (0.9-3.2); Mean Corpuscular HGB Conc 31.5 g/dl (32-36); Mean Corpuscular Hemoglobin 29.1 pg (26-34); Mean Corpuscular Volume 92.4 fl (80-100); Nucleated Red Blood Cells Absolute Auto 0.000 K/mm3 (0.0-0.012); Nucleated Red Blood Cells Perc 0.0 % (0.0-0.2); Platelet Count Result 319 k/mm3 (150-375); Red Blood Count 4.60 M/mm3 (4.2-5.4); White Blood Count 6.4 K/mm3 (4.5-10.0)
[2025-05-17 14:15] LABS: Alanine Aminotransferase 12 U/L (6-35); Albumin Level 4.5 g/dL (3.5-5.1); Alkaline Phosphatase 141 U/L (38-126); Anion Gap 8 mmol/L (4-12); Aspartate Amino Transferase 28 U/L (14-36); Bilirubin,Total 0.4 mg/dL (0.2-1.3); Blood Urea Nitrogen 9 mg/dL (7-17); Calcium 9.5 mg/dL (8.4-10.2); Carbon Dioxide 29 mmol/L (22-30); Chloride 103 mmol/L (98-107); Estimated CRCL calculation 77 ml/min; Estimated Glomerular Filt Rate > 60; Glucose 94 mg/dL (65-110); Lipase 82 U/L (23-300); Potassium 3.8 mmol/L (3.4-5.0); Sodium 140 mmol/L (137-145); Total Protein 9.7 g/dL (6.3-8.2)
[2025-05-17 14:16] LABS: BEDSIDEPREGUCG Negative (Negative)
[2025-05-17 14:26] LABS: Add Urine Microscopic? NO; Appearance Urine Clear (Clear); Glucose Urine UA Negative (Negative); Leukocyte Esterase Ur Negative LEU/UL (Negative); Nitrate Urine Negative (Negative); Specific Grav Ur 1.022 (1.001-1.035)
[2025-05-17 15:29] VITALS: BP 137/86; PULSE 79; RESP 14; TEMP 36.6; O2SAT 99
== END 2025-05-17 15:30 | disposition home or self-care (01) ==
PROVIDERS: Emergency Provider Emergency Medicine; PCP Nurse Practitioner
DX: R11.2 Nausea with vomiting, unspecified (principal); R19.7 Diarrhea, unspecified; I10 Essential (primary) hypertension
CPT/HCPCS: 36415; 74177; 80053; 81003; 81025; 83690; 85025; 96361; 96374; 99284; J2405; J7120; Q9967